=== PATIENT | female | born 1995 | race Two or more races ===

== ENCOUNTER → 2018-06-21 | Outpatient (CLI) | payer OTHER ==
[~2018-06-21] MED LIST: IBUP-1545 PO
--- NOTE | 2018-06-21 17:11 | CONS ---
Assessment/Plan Assessment/Plan Hospital Course (Demo Recall) This is a 22-year-old female who is 2 weeks status post traumatic injury to her left foot. She sustained an acute fracture to her fifth metatarsal neck. It is minimally displaced and is amenable to nonoperative treatment. She is to wear a hard sole shoe at all times. I did recommend at this time secondary to the amount of pain that she does not bear full weight and continue to use crutches. At her next appointment in 2 weeks she will be reevaluated to determine if she can be weightbearing as tolerated. I am also recommending elevation and icing. I am anticipating that she will need to wear a hard soled shoe for another 6 weeks. Hopefully we can begin to wean the crutches in 2 weeks. A work excuse note explaining her restrictions was given. She was also given a [employer] placard for temporary handicap parking. Follow-up 2 weeks with 3 views of the left foot. Consultation Date/Type/Reason Admit Date/Time Date of Consultation: Jun 21, 2018 Reason for Consultation Left foot fracture Date/Time of Note DATE: 06/21/18 TIME: 17:01 Hx of Present Illness This is a healthy 22-year-old female who sustained a left foot injury while at work on 06/06/2018. She slipped off a step and twisted her left ankle and foot. She does states she has some pain around her ankle. However most pain is around the lateral aspect of her foot. She did go to the emergency department on 06/11/2018 as she continued to have significant swelling and pain. She was found to have 1/5 metatarsal neck fracture. She was placed in a hard sole shoe, given crutches, and told she can weight-bear as tolerated. She states she has some decreased sensation of the foot secondary to the swelling. She denies any injury elsewhere. The pain has gone a little better since the injury but is still significant /10 and is sharp and stabbing. She did hit her foot the other day against a piece of furniture in her home. Patient denies fever, chills, shortness of breath, chest pain, nausea/vomiting, constipation, diarrhea, numbness, and tingling. Past Medical History Medical History: no pertinent history Home Meds Active Scripts Ibuprofen* (Ibuprofen*) 800 Mg Tab, 800 MG PO Q6H PRN for PAIN, #30 TAB Prov:BRIAN CRANE Pasquale SANTILLAN 03/06/15 Allergies: Coded Allergies: No Known Allergy (Verified , 03/06/15) Past Surgical History Past Surgical Hx: no surgical history Family History Significant Family History: no pertinent family hx Social History Alcohol Use: none Smoking Status: Light tobacco smoker (Smokes once every 1-2 months) Drug Use: none Exam/Review of Systems Exam Vitals Weight: 240 pounds Height: 5 feet 4 inches BMI: 40.0 Temperature: 90.4 Heart Rate: 71 Blood Pressure: 115/70 Respiratory Rate: 12 Additional Comments General: Awake, alert, in no acute distress, pleasant and cooperative Heart: regular rhythm Lungs: breathing comfortably, no tachypnea or dyspnea Musculoskeletal: Left lower extremity There is swelling and ecchymosis along the foot especially along the lateral border. There is some tenderness to palpation along the distal fibula. There is mild to moderate tenderness to palpation over the dorsum of the foot. There is exquisite tenderness to palpation over the fifth metatarsal neck. General: Alert, oriented x3. No Acute Distress. Heart: Regular rate and rhythm. Lungs: No respiratory distress. No accessory muscle use. Sensation intact to light touch in a sural, saphenous, deep peroneal, superficial peroneal, medial and lateral plantar nerve distribution. Motor is intact, patient able to dorsiflex and plantarflex ankle and extend and flex great toe. Dorsalis Pedis pulse +2, Brisk capillary refill. Compartments are soft. Imaging Imaging 3 views of the left ankle and left foot were obtained in clinic today and personally reviewed. The ankle x-rays demonstrate an old avulsion fracture of the distal fibula. It is well corticated. No acute injury of the ankle. Joints are reduced no syndesmotic injury. There is an acute fracture of the left fifth metatarsal neck. It is nondisplaced. It is minimally angulated with apex plantar. ELISE CALLOWAY MD Jun 21, 2018 17:11
--- NOTE | 2018-06-22 02:26 | RADRPT ---
PROCEDURE: XR Left Ankle. CLINICAL INDICATION: Pain TECHNIQUE: AP, oblique and lateral views of the left ankle were performed. COMPARISON: None. FINDINGS: There is normal mineralization and alignment. No acute fracture or osseous lesion is identified. The joints are normal. The ankle mortise is intact. The soft tissues are unremarkable. IMPRESSION: No acute osseous abnormality. [facility] Physician Cherise Date Time Electronically viewed and signed by Physician Cherise on 06/22/2018 02:26 /
--- NOTE | 2018-06-22 02:26 | RADRPT ---
PROCEDURE: XR Foot. CLINICAL INDICATION: Pain TECHNIQUE: AP, lateral and oblique views of the left foot was obtained. The images were reviewed o n a PACS workstation. COMPARISON: None. FINDINGS: There is an oblique fracture of the distal fifth metatarsal with overlying soft tissue swelling. The joint spaces are preserved. The osseous mineralization is normal. IMPRESSION: Distal fifth metatarsal fracture. [facility] Physician Cherise Date Time Electronically viewed and signed by James Scales Physician on 06/22/2018 02:25 CS/
== END | disposition home or self-care (01) ==
LOC: HKI 16:04
PROVIDERS: ATTEND Orthopaedic Surgery Adult Reconstructive Orthopaedic Surgery
DX: S92.352D Displaced fracture of fifth metatarsal bone, left foot, subsequent encounter for fracture with routine healing (principal); W01.0XXD Fall on same level from slipping, tripping and stumbling without subsequent striking against object, subsequent encounter
CPT/HCPCS: 73610; 73630; Z7500; G0463